=== PATIENT | female | born 1990 | race African-American/Black ===

== ENCOUNTER 2016-11-10 23:45 | Emergency (ER) | payer OTHER ==
[2016-11-11 00:03] VITALS: BP 121/73
--- NOTE | 2016-11-11 01:50 | PROVIDER DOCUMENTATION ---
HPI-Musculoskeletal Pain/Inj - GENERAL Chief Complaint: Fall Stated Complaint: KNEE PAIN Time Seen by Provider: 11/11/16 01:38 Source: patient - HX OF PRESENT ILLNESS-MUSKULOSKELTAL Nature of Presenting Problem: 25 year old F presents to the ED with a cc of left knee pain with an onset of yesterday. PT states that she slipped and fell landing on left knee. PT states that she believes her knee cap popped out of place. Pt states that she is able to walk on knee. Quality of Pain: reports: aching Severity in ED: mild Onset/Duration: 24 hours ago Timing: still present Modifying Factors: improves with: nothing Any recent injury?: Yes Locality of Occurance: Home Similar Symptoms Previously?: No Recently seen or treated by another doctor?: No Review of Systems - Adult - REVIEW OF SYSTEMS - ADULT Constitutional: denies: chills, fever Eyes: reports: no symptoms reported Ears, Nose, Mouth & Throat: reports: no symptoms reported Cardiovascular: reports: no symptoms reported Respiratory: reports: no symptoms reported Gastrointestinal: reports: no symptoms reported Genitourinary: reports: no symptoms reported Musculoskeletal: reports: joint pain, muscle aches. denies: muscle weakness Integumentary: reports: skin sores/ulcer, skin thickening Neurological: reports: no symptoms reported Psychiatric: reports: no symptoms reported Endocrine: reports: no symptoms reported Hematologic/Lymphatic: reports: no symptoms reported Allergic/Immunologic: reports: no symptoms reported All Other Systems: Reviewed and Negative Past History - Adult - PAST MEDICAL HISTORY-ADULT Review of Records: reports: Nursing Assessment Review, Medications Reviewed Major Childhood Illnesses: reports: denies history Cardiovascular: reports: denies history - PRIOR SURGERIES/PROCEDURES Surgical/Procedure History: reports: , other (cyst removal ) - IMMUNIZATION STATUS Childhood Immunizations: See Nurse Assessment Flu Vaccine: See Nurse Assessment - FAMILY HISTORY Family History: reviewed, not pertinent - SOCIAL HISTORY Smoking: non-smoker Substance Use: none/never Alcohol Use Frequency: never Physical Exam-Injury Related - Physical Exam-Injury Related Initial Vital Signs Reviewed: Yes General Appearance: appears well, alert, no apparent distress Respiratory: chest non-tender, lungs clear, normal breath sounds Cardiovascular: normal peripheral pulses, regular rate, rhythm, no edema Extremity: tenderness (left anterior knee) Integumentary: normal color, warm/dry Psych/Mental Status: normal mood/affect, normal thought content, normal thought process, oriented x 3 Progress - PLAN OF CARE/RESULTS Progress/Plan/Lab Results: plan of care: imaging Orders Category Date Time Status KNEE 3 VIEWS LEFT [RAD] Stat Exams 11/11/16 00:04 Taken Vital Signs - 24 hr 11/10/16 23:58 Temperature 98.7 F Pulse Rate 83 Respiratory 16 Rate Blood Pressure 121/73 O2 Sat by Pulse 100 Oximetry Pt given results and will be d/c home w/o rx to follow up with OBGYN. Pt verbally understood instructions. PT remained clinically stable throughout the course of the ED stay and will return if symptoms worsen. - XRAY 1 XRAY: Left XRAY Study: Knee Impression: Normal XRAY Interpretation: NAD: Dr. Vee- CRISTOFER WARNER Attestation - Scribe Verification/Attestation Scribe:: Donna Curran Acting as Scribe for:: Edvin Vee Scribe documention review:: This chart was documented by a scribe and accurately reflects the service the provider performed and the decisions made by the provider. Physician Attestation - Physician Attestation I, the provider, attest to the following statement:: Edvin Vee Physician documentation Attestation:: This documentation recorded by the scribe accurately reflects the service I personally performed and the decisions made by me.
--- NOTE | 2016-11-11 07:44 | Diag Imaging Result Document ---
PROCEDURE NAME: KNEE 3 VIEWS LEFT - 11/11/2016 LEFT KNEE, THREE VIEWS: FINDINGS: No fracture. No dislocation. IMPRESSION: No acute bony injury.
== END 2016-11-11 02:15 | disposition home or self-care (01) ==
LOC: P.ED 23:45
DX: M25.562 Pain in left knee (principal); M79.1 Myalgia; R23.4 Changes in skin texture; W01.0XXA Fall on same level from slipping, tripping and stumbling without subsequent striking against object, initial encounter
CPT/HCPCS: 99283